=== PATIENT | female | born 1955 | race Caucasian/White ===

== ENCOUNTER → 2023-10-03 14:57 | Outpatient (REF) | payer OTHER, SELFPAY | LOC: RCS 14:57 | PROVIDERS: ATTENDING PHYSICIAN Internal Medicine Cardiovascular Disease; FAMILY PHYSICIAN Internal Medicine | DX: R06.09 Other forms of dyspnea (principal) | CPT/HCPCS: 93306; 93356 ==

== ENCOUNTER → 2023-10-16 15:16 | Outpatient (REF) | payer OTHER, SELFPAY | LOC: RAD 15:16 | PROVIDERS: ATTENDING PHYSICIAN Internal Medicine; FAMILY PHYSICIAN Internal Medicine | DX: R05.3 Chronic cough (principal) | CPT/HCPCS: 71250 ==

== ENCOUNTER → 2023-10-28 14:05 | Outpatient (REF) | payer OTHER, SELFPAY ==
[2023-10-28 15:35] LABS: % Basophils 0.5 % (0-2); % Eosinophils 2.4 % (0-6); % Immature Granulocytes 0.2 % (0-0.5); % Lymphocytes 36.9 % (20.5-51.1); % Monocytes 8.5 % (1.7-9.3); % Neutrophils 51.5 % (42.2-75.2); Absolute Eosinophils 0.1 10^3/uL (0-0.7); Absolute Lymphocytes 2.1 10^3/uL (1.2-3.4); Absolute Monocytes 0.5 10^3/uL (0.1-0.6); Hematocrit 39.1 % (37.0-47.0); Hemoglobin 13.2 g/dL (12.0-16.0); Mean Corp Hgb Conc. 33.8 g/dL (33.0-37.0); Mean Corpuscular Hgb 30.4 pg (27.0-31.0); Mean Corpuscular Volume 90.1 fL (81.0-99.0); Mean Platelet Volume 9.2 fL (7.4-10.4); Nucleated Red Blood Cells % 0 %; Platelet Count 238 10^3/uL (130-400); Red Blood Cell Count 4.34 10^6/uL (4.20-5.40); Red Cell Dist. Width 12.8 % (11.5-14.5); White Blood Cell Count 5.8 10^3/uL (4.8-10.8)
[2023-10-28 15:58] LABS: Free T3 3.48 pg/ml (2.77-5.27); Free T4 0.84 ng/dl (0.78-2.19)
[2023-10-28 16:12] LABS: TSH 1.02 uIU/ml (0.47-4.68)
[2023-10-30 23:35] LABS: Alternaria tenuis <0.10 kU/L (<=0.34); Aspergillus fumigatus <0.10 kU/L (<=0.34); Bermuda Grass <0.10 kU/L (<=0.34); Birch Tree 0.44 kU/L (<=0.34); Box Elder/Maple Tree <0.10 kU/L (<=0.34); Cat Epithelium/Dander <0.10 kU/L (<=0.34); Common Pigweed <0.10 kU/L (<=0.34); Common/Short Ragweed <0.10 kU/L (<=0.34); Cottonwood Tree <0.10 kU/L (<=0.34); Dermatophagoides farinae <0.10 kU/L (<=0.34); Dermatophagoides pteronyssinus <0.10 kU/L (<=0.34); Dog Dander <0.10 kU/L (<=0.34); Elm Tree <0.10 kU/L (<=0.34); German Cockroach <0.10 kU/L (<=0.34); Hormodendrum <0.10 kU/L (<=0.34); IgE 12 kU/L (<=214); Mountain Cedar Tree <0.10 kU/L (<=0.34); Mouse Epithelium <0.10 kU/L (<=0.34); Mucor racemosus <0.10 kU/L (<=0.34); Mugwort Weed <0.10 kU/L (<=0.34); Oak Tree 0.28 kU/L (<=0.34); Penicillium notatum <0.10 kU/L (<=0.34); Sheep Sorrel Weed <0.10 kU/L (<=0.34); Sycamore Tree <0.10 kU/L (<=0.34); White Ash Tree <0.10 kU/L (<=0.34); White Mulberry Tree <0.10 kU/L (<=0.34)
== END ==
LOC: RAD 14:05
PROVIDERS: ATTENDING PHYSICIAN Internal Medicine
DX: E07.9 Disorder of thyroid, unspecified (principal)
CPT/HCPCS: 36415; 76536; 82785; 84439; 84443; 84481; 85025; 86003

== ENCOUNTER 2023-11-26 06:15 | Day surgery (SDC) | payer OTHER, SELFPAY ==
[2023-11-18 07:41] VITALS: BMI 28.6
[2023-11-18 09:04] LABS: Hematocrit 39.8 % (37.0-47.0); Hemoglobin 12.8 g/dL (12.0-16.0); Mean Corp Hgb Conc. 32.2 g/dL (33.0-37.0); Mean Corpuscular Hgb 29.4 pg (27.0-31.0); Mean Corpuscular Volume 91.5 fL (81.0-99.0); Mean Platelet Volume 9.6 fL (7.4-10.4); Platelet Count 215 10^3/uL (130-400); Red Blood Cell Count 4.35 10^6/uL (4.20-5.40); Red Cell Dist. Width 13.1 % (11.5-14.5); White Blood Cell Count 5.4 10^3/uL (4.8-10.8)
[2023-11-18 09:31] LABS: INR 1.02; PT 13.2 Sec (11.4-14.6)
[2023-11-18 09:32] LABS: APTT 30.5 Sec (23.4-35.0)
[2023-11-18 10:02] LABS: ALT (SGPT) 50 U/L (0-35); AST (SGOT) 39 U/L (14-36); Alkaline Phosphatase 58 U/L (38-126); Blood Urea Nitrogen 20 mg/dl (7-17); Calcium 8.8 mg/dl (8.4-10.2); Carbon Dioxide 29 mmol/L (22-30); Chloride 105 mmol/L (98-107); Estimated Creatinine Clearance 79 ml/min; Glucose 87 mg/dl (70-99); Potassium 4.2 mmol/L (3.5-5.1); Sodium 138 mmol/L (135-145); Total Bilirubin 0.7 mg/dl (0.2-1.3); Total Protein 6.4 g/dl (6.3-8.2); eGFR > 60.00
[2023-11-26] VITALS (15 sets, daily range): BP systolic 102–133; BP diastolic 58–89; BMI 27.2
[2023-11-26] MEDS: TYLENOL 1000 MG PO (11:40)
[2023-11-26] MEDS: NEURONTIN 300 MG PO (11:40)
[2023-11-26] MEDS: HEPARIN 5000 UNITS SC (11:41)
[2023-11-26] MEDS: NORMOSOL-R 1000 IV (11:41)
--- NOTE | 2023-11-26 13:31 | OR.RPT ---
Operative Report
Operative Report
PREOPERATIVE DIAGNOSIS: Left Thyroid Goiter - E040
POSTOPERATIVE DIAGNOSIS: Same
SURGEON: Mike Self M.D.
OPERATION: Resection of the left substernal goiter - [id number]
ANESTHESIA: GET
ESTIMATED BLOOD LOSS: 3 cc
DRAINS: None
SPECIMEN: left total thyroid lobe and isthmus
FINDINGS: left substernal goiter
COMPLICATIONS:�None
PROCEDURE:
The patient was taken to the operating room and placed in the usual supine position. After adequate general endotracheal anesthesia was established, the patient�s neck was extended, prepped, and draped in the typical sterile fashion. A 5 cm
transcervical incision was made two fingerbreadths above the sternal notch. The skin incision was made with the #15 blade, which was taken through the skin into the subcutaneous tissue. The underlying platysma muscle was divided, and subplatysmal
flaps were created superiorly to the thyroid cartilage and inferiorly to the sternal notch. Strap muscles were identified and at the midline.
Attention was turned to the patient�s left thyroid lobe. The left thyroid lobe was mobilized medially. During this process, the left middle thyroid vein and inferior thyroid artery were dissected and ligated with Ligasure. There was a substernal
extension, which was delivered out of the mediastinum through the cervical incision. Next, the left superior pole was taken down by dissecting and transecting the superior pole vessels with a Ligasure. The left thyroid lobe was mobilized medially.
During this process, the left recurrent laryngeal nerve was identified and preserved throughout its entire course. The left superior parathyroid gland was identified and preserved. The left thyroid lobe with isthmus was resected off the trachea and
sent to the pathology department.
After obtaining adequate hemostasis, the strap muscle was approximated with #3-0 Vicryl in a running fashion, and platysma muscles were reapproximated with #3-0 Vicryl in an interrupted fashion, and the skin was approximated with #4-0 Monocryl in a
running subcuticular fashion. Steri-strips and sterile dressings were placed. The patient tolerated the procedure well. The final instrument, needle, and sponge counts were correct.
[2023-11-26] MEDS: DILAUDID 0.25 MG IV ×2 (14:06→15:10)
== END 2023-11-26 16:53 | disposition home or self-care (01) ==
LOC: SDS 06:15
PROVIDERS: ATTENDING PHYSICIAN Surgery; FAMILY PHYSICIAN Internal Medicine; OTHER PHYSICIAN Internal Medicine; OTHER PHYSICIAN Internal Medicine Cardiovascular Disease; OTHER PHYSICIAN Otolaryngology
DX: C73 Malignant neoplasm of thyroid gland (principal); E04.0 Nontoxic diffuse goiter
CPT/HCPCS: 60271; 88307; 36415; 80053; 85027; 85610; 85730; 88342

== ENCOUNTER → 2024-02-25 07:01 | Outpatient (REF) | payer OTHER, SELFPAY | LOC: RAD 07:01 | PROVIDERS: ATTENDING PHYSICIAN Urology; FAMILY PHYSICIAN Internal Medicine; REFERRING PHYSICIAN Internal Medicine Gastroenterology | DX: N13.5 Crossing vessel and stricture of ureter without hydronephrosis (principal); N20.0 Calculus of kidney; R79.89 Other specified abnormal findings of blood chemistry | CPT/HCPCS: 76700; 76775 ==

== ENCOUNTER → 2024-02-27 10:33 | Outpatient (REF) | payer OTHER, SELFPAY | LOC: RAD 10:33 | PROVIDERS: ATTENDING PHYSICIAN Urology; FAMILY PHYSICIAN Internal Medicine | DX: N13.5 Crossing vessel and stricture of ureter without hydronephrosis (principal) | CPT/HCPCS: 78708; A9539 ==

== ENCOUNTER → 2024-03-06 12:28 | Outpatient (REF) | payer OTHER, SELFPAY | LOC: WDC 12:28 | PROVIDERS: ATTENDING PHYSICIAN Obstetrics & Gynecology Gynecology; FAMILY PHYSICIAN Internal Medicine | DX: Z12.31 Encounter for screening mammogram for malignant neoplasm of breast (principal); Z78.0 Asymptomatic menopausal state | CPT/HCPCS: 77063; 77067; 77080 ==

== ENCOUNTER → 2024-03-24 06:24 | Day surgery (SDC) | payer OTHER, SELFPAY | LOC: GI 06:24 | PROVIDERS: ATTENDING PHYSICIAN Internal Medicine Gastroenterology | DX: Z12.11 Encounter for screening for malignant neoplasm of colon (principal); K52.9 Noninfective gastroenteritis and colitis, unspecified; K63.89 Other specified diseases of intestine; K57.30 Diverticulosis of large intestine without perforation or abscess without bleeding; K64.8 Other hemorrhoids; Z86.010 Personal history of colon polyps | CPT/HCPCS: 45380; 88305 ==

== ENCOUNTER → 2024-09-22 15:01 | Outpatient (REF) | payer MEDICARE, OTHER, SELFPAY | LOC: REG 15:01 | PROVIDERS: ATTENDING PHYSICIAN Otolaryngology; FAMILY PHYSICIAN Internal Medicine | DX: R05.3 Chronic cough (principal) | CPT/HCPCS: 71046 ==

== ENCOUNTER → 2024-10-19 13:05 | Outpatient (REF) | payer MEDICARE, OTHER, SELFPAY | LOC: HWRAD 13:05 | PROVIDERS: ATTENDING PHYSICIAN Internal Medicine; FAMILY PHYSICIAN Internal Medicine; REFERRING PHYSICIAN Otolaryngology | DX: R91.8 Other nonspecific abnormal finding of lung field (principal) | CPT/HCPCS: 71250 ==

== ENCOUNTER → 2024-12-03 16:33 | Outpatient (REF) | payer MEDICARE, OTHER, SELFPAY | LOC: REG 16:33 | PROVIDERS: FAMILY PHYSICIAN Internal Medicine | DX: M25.551 Pain in right hip (principal) | CPT/HCPCS: 36415; 86618 ==

== ENCOUNTER → 2025-03-08 14:41 | Outpatient (REF) | payer MEDICARE, OTHER, SELFPAY | LOC: WDC 14:41 | PROVIDERS: ATTENDING PHYSICIAN Obstetrics & Gynecology Gynecology; FAMILY PHYSICIAN Internal Medicine | DX: Z12.31 Encounter for screening mammogram for malignant neoplasm of breast (principal) | CPT/HCPCS: 77063; 77067 ==

== ENCOUNTER → 2025-04-01 07:03 | Outpatient (REF) | payer MEDICARE, OTHER, SELFPAY | LOC: RAD 07:03 | PROVIDERS: ATTENDING PHYSICIAN Urology; FAMILY PHYSICIAN Internal Medicine | DX: N13.5 Crossing vessel and stricture of ureter without hydronephrosis (principal); N20.0 Calculus of kidney; C67.0 Malignant neoplasm of trigone of bladder | CPT/HCPCS: 75571; 76770 ==

== ENCOUNTER → 2025-04-20 07:30 | Outpatient (REF) | payer MEDICARE, OTHER, SELFPAY | LOC: HWRAD 07:30 | PROVIDERS: ATTENDING PHYSICIAN Internal Medicine; FAMILY PHYSICIAN Internal Medicine | DX: R05.2 Subacute cough (principal) | CPT/HCPCS: 71250 ==

== ENCOUNTER → 2025-04-29 12:26 | Outpatient (REF) | payer MEDICARE, OTHER, SELFPAY ==
[2025-04-29 13:09] VITALS: BP 138/86; BP_SYST 74
== END ==
LOC: RADI 12:26
PROVIDERS: ATTENDING PHYSICIAN Orthopaedic Surgery; FAMILY PHYSICIAN Internal Medicine
DX: S76.011A Strain of muscle, fascia and tendon of right hip, initial encounter (principal); M25.551 Pain in right hip; X58.XXXA Exposure to other specified factors, initial encounter; M70.61 Trochanteric bursitis, right hip
CPT/HCPCS: 20550; 76882; 76942

== ENCOUNTER → 2025-07-23 19:45 | Outpatient (REF) | payer MEDICARE, OTHER, SELFPAY | LOC: MRI 19:45 | PROVIDERS: ATTENDING PHYSICIAN Otolaryngology; FAMILY PHYSICIAN Internal Medicine | DX: H93.12 Tinnitus, left ear (principal) | CPT/HCPCS: 70553; A9575 ==